=== PATIENT | female | born 1945 | race Caucasian/White ===

== ENCOUNTER 2017-12-16 07:36 | Emergency (ER) | payer OTHER ==
[~2017-12-16] VITALS: Ht 165.1 cm; Wt 117.9 kg
[~2017-12-16 07:36] MED LIST: ASPI-COR81 M3 PO; CRESTOR10 M1 PO; ENALAPRIL20 M1 PO; FAMOTIDINE20 MG PO; GLIPIZIDE10 MG PO; HYDROCHLOROTHIA25 MG PO; IMITREX100 MG PO; METFORMIN1000 M1 PO; PIOGLITAZONE45 M1 PO; TOPIRAMATE25 M3 PO; TOPROL XL50 MG PO
[2017-12-16 07:38] VITALS: Ht 165.1 cm; Wt 117.9 kg
[2017-12-16 12:02] VITALS: BP 137/78
== END 2017-12-16 12:02 | disposition home or self-care (01) ==
LOC: ED 07:36
DX: G43.909 Migraine, unspecified, not intractable, without status migrainosus (principal); I10 Essential (primary) hypertension; E11.9 Type 2 diabetes mellitus without complications; Z88.8 Allergy status to other drugs, medicaments and biological substances
CPT/HCPCS: J1200; J2270; J2405

== ENCOUNTER 2018-04-22 00:26 | Inpatient (IN) | payer OTHER ==
[~2018-04-22] VITALS: Ht 167.6 cm; Wt 121.6 kg
[2018-04-22 00:32] VITALS: Ht 167.6 cm; Wt 121.6 kg
[2018-04-22 01:33] LABS: CALCIUM 8.7 mg/dL (8.5-10.1); CARBON DIOXIDE 29.3 mmol/L (21-32); CHLORIDE SERUM 100 mmol/L (98-107); CREATININE SERUM 0.9 mg/dL (0.6-1.0); GLUCOSE SERUM 153 mg/dL (74-106); POTASSIUM SERUM 3.9 mmol/L (3.5-5.1); SODIUM SERUM 136 mmol/L (136-145)
[2018-04-22] MEDS ORDERED: AMITRIPTYLINE H10 MG (01:33)
[2018-04-22] MEDS ORDERED: FUROSEMIDE20 MG (01:33)
[2018-04-22] MEDS ORDERED: [UNRECOGNIZED DRUG - OTHER] (01:33)
[2018-04-22] MEDS ORDERED: NOR10T (01:33)
[2018-04-22] MEDS ORDERED: SYNTHROID0.05 MG (01:33)
[2018-04-22 01:38] LABS: ALKALINE PHOSPHATASE 81 U/L (46-116); AST/SGOT 15 U/L (15-37); BILIRUBIN TOTAL 0.29 mg/dL (0.20-1.00); TOTAL PROTEIN, SERUM 7.2 g/dL (6.4-8.2)
[2018-04-22 01:41] LABS: BASOPHIL % 0.5 % (0-2); PLATELET COUNT 365 x10^3mcL (130-400)
[2018-04-22 01:42] LABS: RED CELL DISTRIBUTION WIDTH 14.6 % (11.5-14.5)
[2018-04-22 01:49] LABS: ALT/SGPT 14 U/L (14-59)
[2018-04-22 03:19] LABS: MAGNESIUM 1.5 mg/dL (1.8-2.4); PHOSPHOROUS 3.4 mg/dL (2.5-4.9)
[2018-04-22 03:21] VITALS: BP 110/83
[2018-04-22 03:24] LABS: FREE T4 1.38 ng/dL (0.76-1.46); FREE THYROXINE INDEX 3.6 ug/dL (1.4-4.5); T4(THYROXINE) 10.2 ug/dL (4.7-13.3)
[2018-04-22 04:32] LABS: T3 TOTAL 1.24 ng/mL
[2018-04-22] MEDS ORDERED: CORE25 PO (04:51)
[2018-04-22] MEDS ORDERED: ENALAPRIL MALEA20 MG PO (04:51)
[2018-04-22] MEDS ORDERED: LIPITOR40 MG PO (04:53)
[2018-04-22] MEDS ORDERED: ACT30 PO (04:53)
[2018-04-22] MEDS ORDERED: GLUCOTROL10 MG PO (04:54)
[2018-04-22] MEDS ORDERED: ASPIR LOW81 MG PO (04:55)
[2018-04-22] MEDS ORDERED: HYDROCHLOROTHIA25 MG PO (04:56)
[2018-04-22 05:30] LABS: BASOPHIL % 0.2 % (0-2); PLATELET COUNT 371 x10^3mcL (130-400)
[2018-04-22 05:34] LABS: RED CELL DISTRIBUTION WIDTH 15.1 % (11.5-14.5)
[2018-04-22 05:43] LABS: CALCIUM 9.5 mg/dL (8.5-10.1); CARBON DIOXIDE 26.5 mmol/L (21-32); CHLORIDE SERUM 99 mmol/L (98-107); CREATININE SERUM 0.8 mg/dL (0.6-1.0); GLUCOSE SERUM 196 mg/dL (74-106); MAGNESIUM 1.6 mg/dL (1.8-2.4); PHOSPHOROUS 3.4 mg/dL (2.5-4.9); POTASSIUM SERUM 3.4 mmol/L (3.5-5.1); SODIUM SERUM 137 mmol/L (136-145)
[2018-04-22 07:35] LABS: microscopic required? YES; urine erythrocyte TRACE (NEGATIVE)
[2018-04-22 07:55] LABS: AMPHETAMINE QUAL UR NONE DETECTED (See below)
[2018-04-22 08:25] VITALS: BP 120/55
[2018-04-22 16:32] VITALS: BP 129/64
[2018-04-22 21:14] VITALS: BP 133/62
[2018-04-23 06:10] LABS: BASOPHIL % 0.5 % (0-2); PLATELET COUNT 344 x10^3mcL (130-400)
[2018-04-23 06:11] VITALS: BP 119/54
[2018-04-23 06:29] LABS: CALCIUM 8.7 mg/dL (8.5-10.1); CARBON DIOXIDE 27.7 mmol/L (21-32); CHLORIDE SERUM 101 mmol/L (98-107); CREATININE SERUM 0.7 mg/dL (0.6-1.0); GLUCOSE SERUM 192 mg/dL (74-106); POTASSIUM SERUM 4.1 mmol/L (3.5-5.1); SODIUM SERUM 138 mmol/L (136-145)
[2018-04-23 06:37] LABS: RED CELL DISTRIBUTION WIDTH 14.9 % (11.5-14.5)
[2018-04-23 09:09] VITALS: BP 132/71
[2018-04-23 17:19] VITALS: BP 123/44
[2018-04-23 20:41] VITALS: BP 128/44
[2018-04-24 05:53] VITALS: BP 129/54
[2018-04-24 07:18] LABS: BASOPHIL % 0.3 % (0-2); PLATELET COUNT 309 x10^3mcL (130-400)
[2018-04-24 07:20] LABS: CALCIUM 8.3 mg/dL (8.5-10.1); CHLORIDE SERUM 102 mmol/L (98-107); CREATININE SERUM 0.6 mg/dL (0.6-1.0); GLUCOSE SERUM 199 mg/dL (74-106); POTASSIUM SERUM 3.6 mmol/L (3.5-5.1); SODIUM SERUM 139 mmol/L (136-145)
[2018-04-24 07:23] LABS: RED CELL DISTRIBUTION WIDTH 14.8 % (11.5-14.5)
[2018-04-24 08:37] VITALS: BP 124/60
[2018-04-24 17:06] VITALS: BP 118/48
[2018-04-24 20:58] VITALS: BP 124/55
[2018-04-25 06:07] VITALS: BP 109/46
[2018-04-25 07:05] LABS: BASOPHIL % 0.2 % (0-2); PLATELET COUNT 324 x10^3mcL (130-400)
[2018-04-25 07:07] LABS: CALCIUM 8.2 mg/dL (8.5-10.1); CARBON DIOXIDE 31.8 mmol/L (21-32); CHLORIDE SERUM 96 mmol/L (98-107); CREATININE SERUM 0.6 mg/dL (0.6-1.0); GLUCOSE SERUM 186 mg/dL (74-106); MAGNESIUM 1.9 mg/dL (1.8-2.4); POTASSIUM SERUM 3.2 mmol/L (3.5-5.1); SODIUM SERUM 132 mmol/L (136-145)
[2018-04-25 07:09] LABS: RED CELL DISTRIBUTION WIDTH 14.9 % (11.5-14.5)
[2018-04-25 08:57] VITALS: BP 121/52
[2018-04-25 14:22] VITALS: BP 121/52
== END 2018-04-25 14:40 | DRG 480 ==
LOC: ED 00:26 → MU 02:14
PROVIDERS: Emergency Medicine; Family Medicine; Internal Medicine; Neuromusculoskeletal Medicine, Sports Medicine
PROC: 0QH704Z Insertion of Internal Fixation Device into Left Upper Femur, Open Approach (ICD-10-PCS; principal; 2018-04-23 13:30)
DX: S72.22XA Displaced subtrochanteric fracture of left femur, initial encounter for closed fracture (principal); N17.0 Acute kidney failure with tubular necrosis; E44.0 Moderate protein-calorie malnutrition; Z68.41 Body mass index [BMI] 40.0-44.9, adult; N39.0 Urinary tract infection, site not specified; D68.69 Other thrombophilia; E11.65 Type 2 diabetes mellitus with hyperglycemia; D72.829 Elevated white blood cell count, unspecified; E83.42 Hypomagnesemia; I10 Essential (primary) hypertension; E78.5 Hyperlipidemia, unspecified; Z79.84 Long term (current) use of oral hypoglycemic drugs; W18.39XA Other fall on same level, initial encounter; Y93.89 Activity, other specified; Y92.010 Kitchen of single-family (private) house as the place of occurrence of the external cause
CPT/HCPCS: 76001; 82962; 83880; 84439; 94150; 97110-GP; 97530-GP; C1713; J0690; J0696; J1170; J1644; J1815; J2175; J2704; J3010; J3475; J7030; Q0092

== ENCOUNTER → 2018-06-24 | Outpatient (CLI) | payer OTHER ==
[~2018-06-24] MED LIST changes: +ACT30 PO; +AMITRIPTYLINE H10 MG; +ASPIR LOW81 MG PO; +CORE25 PO; +ENALAPRIL MALEA20 MG PO; +FUROSEMIDE20 MG; +GLUCOTROL10 MG PO; +LIPITOR40 MG PO; +NOR10T; +SYNTHROID0.05 MG; +[UNRECOGNIZED DRUG - OTHER]
== END | disposition home or self-care (01) ==
LOC: RD 11:35
DX: S72.92XD Unspecified fracture of left femur, subsequent encounter for closed fracture with routine healing (principal); X58.XXXD Exposure to other specified factors, subsequent encounter